=== PATIENT | female | born 1995 | race Caucasian/White ===

== ENCOUNTER 2023-10-11 08:42 | Emergency (ER) | payer OTHER, SELFPAY ==
[2023-10-11 08:44] VITALS: BP 133/70; PULSE 71; RESP 16; TEMP 36.6; O2SAT 98; BMI 24.0
--- NOTE | 2023-10-11 09:05 | EX.ED.UPPERE ---
HPI History of Present Illness HPI Narrative: Patient presents with left hand injury that occurred today while at work. Patient states she got her hand caught in a coffee machine. Patient states that they had to use to pry bars to remove her hand. Patient denies any lacerations. Patient states the pain is worse over the middle and ring fingers. Patient admits to some tingling in the tips of her fingers. Patient states her pain is worse with movement. Patient describes it as aching and severe. Patient is right-hand dominant. Patient denies any other injuries. Chief Complaint: Upper Extremity Injury Informant: patient Occured/Mechanism Mechanism/Context: Yes crush Onset/Context/Timing Onset: Today Context: Sudden Onset Timing: Continuous Quality of Pain: Aching Location: Left hand Worsened by: Movement Relieved by: Nothing Associated Symptoms Associated Symptoms: Positive for Parasthesia; Negative for Weakness or Loss of Funtion PFSH PFSH Medical History no medical history no medical history Allergy/AdvReac Type Severity Reaction Status Date / Time No Known Allergies Allergy Verified 10/11/23 08:47 Surgical History no surgical history no surgical history Social History Smoking Status: Never smoker ROS ROS ED Constitutional Constitutional ED: Denies chills or fever(s) Eyes Eyes: Denies blurry vision or change in vision ENT ENT ED: Denies rhinorrhea or sore throat Cardiovascular Cardiovascular: Denies chest pain or palpitations Respiratory/Chest Respiratory/Chest: Denies cough or dyspnea Gastrointestinal Gastrointestinal: Denies nausea or vomiting Genitourinary Genitourinary ED: Denies dysuria or hematuria Musculoskeletal Musculoskeletal: Denies back pain or neck pain Integumentary Denies abscess or rash Neurologic Neurologic: Denies headache(s) or weakness Allergic/Immunologic Allergic/Immunologic ED: Denies mouth swelling or urticaria EXAM Physical Exam Const Vital Signs: 10/11/23 08:44 Temperature 97.8 F Temperature Source Temporal Pulse Rate 71 Respiratory Rate 16 Blood Pressure 133/70 H Blood Pressure Mean 91 Pulse Ox 98 Oxygen Delivery Method Room Air Positive well nourished and well developed General Appearance ED: well developed and NAD HEENT Reports moist mucous membranes Neck full ROM and supple Extremity Extremity Narrative: There is tenderness and mild edema over the left hand and the second through fifth digits. Tenderness is worse over the third and fourth digits. There is no obvious deformity noted. Range of motion was limited in all motions of the second through fifth digits secondary to pain. Sensation was intact to light touch in the radial, median, and ulnar areas. Strength is 5/5 in the radial, median, and ulnar areas. Radial pulses are equal bilaterally. Neuro oriented x3, CN's II-XII intact bilaterally, moves all extremities, no focal motor deficits and no sensory deficits noted Sensorium / Orientation: alert Motor Exam: strength 5/5 throughout Psych mental status grossly normal MDM MDM MDM Narrative Medical decision making narrative: Differential diagnosis includes fracture, dislocation, contusion, and sprain. X-rays of the left hand will be obtained to assess for fracture and dislocation. Radiography Diagnostic Testing: X-rays of the left hand were obtained. There are 3 views. On my independent interpretation, there is no acute fracture or dislocation noted. There is no soft tissue swelling noted. Radiologist also interpreted the x-rays and agrees. Treatment and Re-Evaluation Narrative: Patient states she is breast-feeding and only wants Tylenol for pain. Patient was given a dose of Tylenol here. Patient was given an ice pack. Patient was given an aluminum foam splint to her middle and ring fingers. Patient was instructed to ice and elevate her left hand. Patient was instructed to take Tylenol or ibuprofen as needed for pain. Patient was instructed to follow-up with her primary care physician or [employer]. in 5 to 7 days. Patient understood and was agreeable with the plan. All questions were answered. Discharge Plan Triage Chief Complaint: Upper Extremity Injury ED Provider: Wayne Sharma Dx/Rx/DC Orders Clinical Impression: Contusion of left hand including fingers Instructions: ED Hand Contusion Disposition Disposition: Home, Self Care
--- NOTE | 2023-10-11 09:18 | RAD_ITS ---
STUDY: X-RAY - LEFT HAND REASON FOR EXAM: Female, 28 years old. Injury/pain. TECHNIQUE: 3 views of the left hand. COMPARISON: None. FINDINGS: Normal radiocarpal articulation. Normal distal radioulnar joint. Normal visualized carpal bones. Normal carpal articulations Normal carpometacarpal articulation of the thumb. Normal second through fifth carpometacarpal joints. Normal metacarpi. Normal metacarpophalangeal joint of the thumb. Normal interphalangeal joint of the thumb. Normal proximal and distal phalanges of the thumb. Normal metacarpophalangeal joints of the second through fifth fingers. Normal proximal and distal interphalangeal joints of the second through fifth fingers. Normal phalanges of the second through fifth fingers. The soft tissue structures are unremarkable. RAD/Hand Min 3 Views IMPRESSION: Normal x-ray examination of the left hand. Electronically Signed: Zeke Schofield MD at 9:33 EST ,
--- NOTE | 2023-10-11 09:18 | ED.RN ---
romeo [employer] job supervisors confirms pt needs 5 panel drug test. called oncall nurse
[2023-10-11] MEDS: Acetaminophen 500 MG Tablet 1000 MG PO (09:28)
== END 2023-10-11 10:53 | disposition home or self-care (01) ==
LOC: ED 10:26
PROVIDERS: Emergency Provider Emergency Medicine; Visit Provider Emergency Medicine
DX: S60.222A Contusion of left hand, initial encounter (principal); S60.032A Contusion of left middle finger without damage to nail, initial encounter; S60.022A Contusion of left index finger without damage to nail, initial encounter; W23.1XXA Caught, crushed, jammed, or pinched between stationary objects, initial encounter; Y99.0 Civilian activity done for income or pay
CPT/HCPCS: 73130; 99283